=== PATIENT | female | born 1995 | race Caucasian/White ===

== ENCOUNTER 2017-05-14 06:49 | Emergency (ER) | payer OTHER ==
[~2017-05-14] VITALS: Ht 160 cm; Wt 54.4 kg
[2017-05-14] MEDS ORDERED: QUET25TA PO (07:01)
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
[2017-05-14 07:45] VITALS: BP 129/85
== END 2017-05-14 07:45 ==
LOC: ER 06:53
DX: Z00.8 Encounter for other general examination (principal); V49.88XA Car occupant (driver) (passenger) injured in other specified transport accidents, initial encounter; Y93.89 Activity, other specified; Y92.410 Unspecified street and highway as the place of occurrence of the external cause; Y99.8 Other external cause status
CPT/HCPCS: 99283; A4663